=== PATIENT | female | born 1965 | race Caucasian/White ===

== ENCOUNTER 2016-10-01 05:18 | Emergency (ER) | payer OTHER ==
[~2016-10-01] VITALS: Ht 175.3 cm; Wt 99.8 kg
[~2016-10-01 05:18] MED LIST: LEVOTHYROXINE0.15 M1 PO; LISINOPRIL HCTZ1 TAB PO; TORADOL10 MG PO; ZANTAC 150MG150 MG PO
--- NOTE | 2016-10-01 05:20 | ED PSYCHIATRIC COMPLAINT ---
History of Present Illness General Chief Complaint: General Adult Stated Complaint: ANXIETY Source: patient, family Exam Limitations: no limitations Vital Signs & Intake/Output Vital Signs & Intake/Output Vital Signs Date Time Temp Pulse Resp B/P Pulse O2 O2 Flow FiO2 Ox Delivery Rate 10/01 0524 97.6 89 19 120/75 97 Room Air Allergies Coded Allergies: MDX - PCN (penicillin) (PCN (PENICILLIN)) (Severe, ANAPHYLAXIS 06/26/14) Reconcile Medications Ketorolac Tromethamine (Toradol) 10 MG TAB 1 TAB PO TID PRN PAIN Levothyroxine Sodium 0.15 MG TAB 1 TAB PO DAILY AC THYROID (Reported) LISINOPRIL/HYDROCHLOROTHIAZIDE (Lisinopril-Hctz 20-25 MG Tab) 20 MG-25 MG TABLET 1 TAB PO DAILY BP (Reported) Lorazepam (Ativan) 1 MG TABLET 1 TAB PO BID PRN ANXIETY TEN...[id number] Ranitidine (Zantac) 150 MG TABLET 1 TAB PO BID PRN GI (Reported) Triage Nurses Notes Reviewed? yes Onset: Gradual Duration: hour(s):, waxing and waning Timing: recent history Severity: moderate Associated Symptoms: anxiety HPI: 51-year-old woman presents with anxiety. She states that yesterday her mother , her father was admitted to the hospital with a heart attack, and she is now in the emergency department because her has chest pain. She states, "I just need something to help me calm down." She denies suicidality, homicidality, hallucinations. She is otherwise well, in the support of her friends who were at the bedside. Past History Travel History Traveled to [place] past 21 day No Medical History Any Pertinent Medical History? see below for history Cardiovascular: hypertension Endocrine: hypothyroidism Surgical History Surgical History: non-contributory Psychosocial History What is your primary language Chinese Family History Hx Contributory? No Review of Systems Review of Systems Constitutional: Reports: no symptoms. EENTM: Reports: no symptoms. Respiratory: Reports: no symptoms. Cardiovascular: Reports: no symptoms. GI: Reports: no symptoms. Genitourinary: Reports: no symptoms. Musculoskeletal: Reports: no symptoms. Skin: Reports: no symptoms. Neurological/Psychological: Reports: no symptoms. Hematologic/Endocrine: Reports: no symptoms. Immunologic/Allergic: Reports: no symptoms. All Other Systems: Reviewed and Negative Physical Exam Physical Exam General Appearance: well developed/nourished, mild distress Head: atraumatic Eyes: Bilateral: PERRL, EOMI. Ears, Nose, Throat: normal pharynx, normal ENT inspection, hearing grossly normal Neck: normal inspection, supple Respiratory: normal breath sounds Cardiovascular: regular rate/rhythm Gastrointestinal: soft, non-tender Extremities: normal range of motion Neurological/Psychiatric: no motor/sensory deficits, awake, alert, normal mood/ affect, anxious Appearance/Memory/Insight: appropriate insight Behavoir/Eye Contact/Speech: cooperative Skin: intact, normal color, warm/dry SAD PERSONS Done? patient not suicidal Progress Differential Diagnosis: anxiety vs grief vs other. Plan of Care: Current Medications Sig/Jose Start time Last Medication Dose Stop Time Status Admin Lorazepam 1 MG ONCE ONE 10/01 529 AC (Ativan) 10/01 530 Departure Departure Disposition: HOME OR SELF CARE Condition: Stable Clinical Impression Primary Impression: Grief Secondary Impressions: Anxiety Referrals: JAYDE PERDOMO DO (PCP/Family) Departure Forms: Customer Survey General Discharge Information Prescriptions: Current Visit Scripts Lorazepam (Ativan) 1 TAB PO BID PRN ANXIETY #10 TAB TEN...[id number]
[2016-10-01] MEDS ORDERED: ATIVAN1 M1 PO (05:21)
[2016-10-01 05:24] VITALS: BP 120/75
== END 2016-10-01 05:34 ==
LOC: ERH 05:18
DX: F43.21 Adjustment disorder with depressed mood (principal); F41.9 Anxiety disorder, unspecified